=== PATIENT | female | born 1950 | race African-American/Black ===

== ENCOUNTER 2017-12-12 09:11 | Day surgery (SDC) | payer MEDICARE, OTHER ==
[~2017-12-12 09:11] MED LIST: EPINEPHRINE INJ 1 MG/10 ML DISP.SYRIN ONE; FLUMAZENIL INJ 0.5 MG/5 ML VIAL ONE; GLUCAGON,HUMAN RECOMB 1 MG INJ ONE; GLYCOPYRROLATE INJ 0.4 MG/2 ML VIAL ONE; NALOXONE HCL INJ/PF 0.4 MG/1 ML SDV ONE; ONDANSETRON HCL INJ/PF 4 MG/2 ML SDV ONE
[2017-12-12] MEDS: MIDAZOLAM 2 MG/2 ML INJ ONE ×4 (10:58→11:08)
[2017-12-12] MEDS: FENTANYL CITRATE INJ/PF 100 MCG/2 ML AMPUL ONE ×3 (11:00→11:20)
--- NOTE | 2017-12-12 11:52 | PDOC DISCHARGE SUMMARY ---
Discharge Summary (SDC) - Discharge Final Diagnosis: Polyps Date of Surgery: 12/12/17 Discharge Date: 12/12/17 Condition: Good Treatment or Instructions: [facility] [place] [id number] POST ENDOSCOPY DISCHARGE INSTRUCTIONS 1. Diet: Start clear liquids that a regular diet as tolerated. 2. Resume all preoperative medications. All oral anticoagulants and aspirins can be resumed 24 hours after procedure. 3. If a polypectomy was performed some bleeding per rectum may occur. This should stop within 3 days. If not, please contact the office. 4. If you had a colonoscopy you may experience some bloating and delayed return of normal bowel function for several days, your regular bowel movement pattern should resume within a week. 5. Please contact [facility] at to make an appointment with Dr. Benítez for 1 to 3 weeks following procedure. 6. If you have any questions or concerns regarding your care,treatment plan or follow up, please contact our office. 7. Per clinical guidelines we recommend you undergo a repeat colonoscopy in 3 years. Referrals: BENJA SOLOMON MD [Primary Care Provider] - Discharge Diet: As Tolerated Discharge Activity: Activity As Tolerated Home Care Assistance: None Needed Report the Following to Your Physician Immediately: Shortness of Breath, Increase in Pain, Fever over 101 Degrees
[2017-12-12 12:59] VITALS: BP 122/73
--- NOTE | 2017-12-12 13:13 | OPERATIVE REPORT E ---
Operative Report NAME: KOTA HICKS : 1950 AGE: 67Y DATE OF SURGERY: 12/12/2017 ROOM: PREOPERATIVE DIAGNOSIS: Personal history of lipomatous polyp of the transverse colon. POSTOPERATIVE DIAGNOSIS: Personal history of lipomatous polyp of the transverse colon with multiple rectosigmoid colon polyps. OPERATION: 1. Total colonoscopy to cecum. 2. Rectal and sigmoid colon polypectomies x3. SURGEON: KELI LAYTON M.D. ANESTHESIA: Conscious sedation. COMPLICATIONS: None. ESTIMATED BLOOD LOSS: Scant. DRAINS: None. TISSUE REMOVED OR ALTERED: Polyps of the rectosigmoid area. PROCEDURE: The patient was taken to the preoperative holding area to the main endoscopy suite where conscious sedation was induced. The patient was placed in the left lateral decubitus position. Surgical plan and surgical timeout were conducted. A rectal exam was performed. There was no visible or palpable anorectal pathology. A flexible adult colonoscope was advanced through the anorectal canal all the way to the cecum. This was an excellent study on a well-prepped bowel. There was some residual green stool throughout the colon which aspirated reasonably well; some particulate was present. Transillumination of the anterior abdominal wall through the cecum, and visualization of the ileocecal valve confirmed cecal intubation. The scope was withdrawn the length of the colon, checking the mucosa carefully. There was no evidence of tumor, stricture, bleeding, or diverticuloses. In the mid transverse colon was approximately a 1.5 cm pedunculated polyp resembling a lipoma. This was photographed. Of note, this was documented in patient's colonoscopy from 2012. No polypectomy was performed. The scope was withdrawn through the remainder of the colon. No other pathology is seen. In the rectosigmoid region, 3 small polyps were removed using the cold forceps device. Bleeding was minimal. The remainder of the colonoscopy was unremarkable. The scope was brought through the anorectal canal. No other pathology is seen. Patient tolerated the procedure well. Per surveillance guidelines, the patient would be an appropriate candidate for followup colonoscopy in 3 years, or sooner if any problems develop. DICTATING PHYSICIAN: KELI LAYTON M.D. [id number] PHY#: [id number] ID: [id number] JOB#: [id number] ACCT: [id number] cc:KELI LAYTON M.D. >
== END 2017-12-12 12:45 | disposition home or self-care (01) ==
LOC: END 09:11
PROVIDERS: ATTEND Surgery
PROC: 0DBN8ZX Excision of Sigmoid Colon, Via Natural or Artificial Opening Endoscopic, Diagnostic (ICD-10-PCS; principal; 2017-12-12 10:00)
DX: Z12.11 Encounter for screening for malignant neoplasm of colon (principal); K63.5 Polyp of colon; Z86.010 Personal history of colon polyps; E78.00 Pure hypercholesterolemia, unspecified; I10 Essential (primary) hypertension; R73.03 Prediabetes; E03.9 Hypothyroidism, unspecified; G47.30 Sleep apnea, unspecified; Z79.82 Long term (current) use of aspirin; Z79.84 Long term (current) use of oral hypoglycemic drugs; Z79.899 Other long term (current) drug therapy; Z88.0 Allergy status to penicillin; Z88.1 Allergy status to other antibiotic agents
CPT/HCPCS: 45380; 82962; 88305 ×2; J2250; J3010; J0171; J1610; J2310; J2405; J3490

== ENCOUNTER → 2018-02-13 | Outpatient (CLI) | payer MEDICARE ==
--- NOTE | 2018-02-13 10:50 | RADIOLOGY REPORT (SQ) ---
EXAM DESCRIPTION: KNEE BILATERAL 1-2 VIEWS COMPLETED DATE/TIME: 02/13/2018 10:24 am REASON FOR STUDY: PAIN IN UNSPECIFIED KNEE M25.569 PAIN IN UNSPECIFIED KNEE COMPARISON: None. NUMBER OF VIEWS: Two views. TECHNIQUE: AP and lateral standing bilateral knees. LIMITATIONS: None. FINDINGS: MINERALIZATION: Normal. RIGHT KNEE BONES: No acute fracture. No worrisome bone lesions. MEDIAL COMPARTMENT: No significant osteophytes. No joint space narrowing. No chondrocalcinosis. LATERAL COMPARTMENT: No significant osteophytes. No joint space narrowing. No chondrocalcinosis. PATELLOFEMORAL COMPARTMENT: There are small posterior patellar and trochlear osteophytes with narrow ing of the joint space. There is no effusion. LEFT KNEE BONES: No acute fracture. No worrisome bone lesions. MEDIAL COMPARTMENT: No significant osteophytes. No joint space narrowing. No chondrocalcinosis. LATERAL COMPARTMENT: No significant osteophytes. No joint space narrowing. No chondrocalcinosis. PATELLOFEMORAL COMPARTMENT: Posterior patellar and trochlear osteophytes are present. There is no j oint effusion. OTHER: There may be some small loose bodies in the midportion of the joint. IMPRESSION: 1. Bilateral patellofemoral degenerative joint changes. 2. There appear to be a couple small loose bodies in the joint on the left. TECHNICAL DOCUMENTATION: JOB ID: [id number] [employer]- All Rights Reserved Reading location - IP/workstation name: [email or web address]
== END ==
LOC: OD 09:56
PROVIDERS: ATTEND Internal Medicine
DX: M25.562 Pain in left knee (principal); M25.561 Pain in right knee; M17.0 Bilateral primary osteoarthritis of knee

== ENCOUNTER → 2019-09-09 | Outpatient (CLI) | payer MEDICARE | LOC: WI 09:00 | PROVIDERS: ATTEND Internal Medicine | DX: Z12.31 Encounter for screening mammogram for malignant neoplasm of breast (principal) | CPT/HCPCS: 77063; 77067 ==

== ENCOUNTER → 2019-10-02 | Outpatient (CLI) | payer MEDICARE ==
--- NOTE | 2019-10-05 11:13 | WOMENS IMAGING REPORT ---
EXAM DESCRIPTION: LEFT DIAGNOSTIC MAMMO W/CAD COMPLETED DATE/TIME: 10/02/2019 10:42 am REASON FOR STUDY: R92.0 MAMMOGRAPHIC MICROCALCIFICATION FOUND ON DIAGNOSTIC IMAGING OF BREAST R92.0 MAMMOGRAPHIC MICROCALCIFICATION FOUND ON DX IMAGING OF COMPARISON: Screening study 09/09/2019 and 09/08/2018 EXAM PARAMETERS: Additional true lateral view. Magnification imaging in orthogonal planes. LIMITATIONS: None. FINDINGS: BREAST LATERALITY: left MASSES: No suspicious masses. CALCIFICATIONS: Increasing pleomorphic calcifications upper outer quadrant 10 cm from the nipple. Th is is in the area of prior biopsy. ARCHITECTURAL DISTORTION: None. ASYMMETRY: None noted. OTHER: No other significant findings. IMPRESSION: Increasing pleomorphic calcifications BREAST DENSITY: b. There are scattered areas of fibroglandular density. BIRAD: ASSESSMENT: 4A-Suspicious abnormality: Needing intervention but with a low suspicion for mal ignancy. Biopsy should be performed in the absence of clinical contra-indication. RECOMMENDATION: RECOMMENDED FOLLOW UP: Birads 4: Biopsy should be performed in the absence of clinic al contraindication. SPECIFIC INTERVENTION/IMAGING/CONSULTATION RECOMMENDED:The suspicious finding(s) amenable to stereo-t actic-guided vacuum assisted core biopsy. COMMUNICATION:The imaging findings were not discussed with the patient. Her referring provider has be en notified of the findings. COMMENT: The patient has been notified of the results by letter per SA requirements. Additional no tification policies are in place for contacting patient with suspicious or incomplete findings. Quality ID #225: The [employer] recommends an annual screening mammogram for women aged 40 years or over. This facility utilizes a reminder system to ensure that all patients receive reminder letters, and/or direct phone calls for appointments. This includes reminders for routine scr eening mammograms, diagnostic mammograms, or other Breast Imaging Interventions when appropriate. Th is patient will be placed in the appropriate reminder system. TECHNICAL DOCUMENTATION: FINDING NUMBER: (1) ASSESSMENT: (1) JOB ID: [id number] [email or web address]- All Rights Reserved Reading location - IP/workstation name: [email or web address]
== END ==
LOC: WI 10:45
PROVIDERS: ATTEND Internal Medicine
DX: R92.0 Mammographic microcalcification found on diagnostic imaging of breast (principal)
CPT/HCPCS: 77065

== ENCOUNTER → 2019-10-22 | Day surgery (SDC) | payer MEDICARE ==
[~2019-10-22] MED LIST changes: -EPINEPHRINE INJ 1 MG/10 ML DISP.SYRIN ONE; -FLUMAZENIL INJ 0.5 MG/5 ML VIAL ONE; -GLUCAGON,HUMAN RECOMB 1 MG INJ ONE; -GLYCOPYRROLATE INJ 0.4 MG/2 ML VIAL ONE; +LIDOCAINE 1%/EPINEPHRINE INJ 20 ML VIAL ONE; -NALOXONE HCL INJ/PF 0.4 MG/1 ML SDV ONE; -ONDANSETRON HCL INJ/PF 4 MG/2 ML SDV ONE
--- NOTE | 2019-10-22 11:13 | Discharge Summary ---
Discharge Summary (SDC) - Discharge Final Diagnosis: Abnormal microcalcifications upper outer quadrant left breast Date of Surgery: 10/22/19 Discharge Date: 10/22/19 Condition: Good Treatment or Instructions: Wear supportive bra; may take Tylenol or Motrin PRN pain; follow-up with [facility] in 1 1 to 2 weeks; office will call patient with results of path report. Referrals: BENJA SOLOMON MD [Primary Care Provider] - Discharge Diet: As Tolerated Discharge Activity: Activity As Tolerated Home Care Assistance: None Needed Report the Following to Your Physician Immediately: Shortness of Breath, Increase in Pain, Fever over 101 Degrees
--- NOTE | 2019-10-22 11:18 | Operative Report ---
Operative Report DATE OF SURGERY: 10/22/19 PREOPERATIVE DIAGNOSIS: 1. Abnormal region of microcalcifications upper outer quadrant left breast. 2. History of previous stereotactic breast biopsy left breast POSTOPERATIVE DIAGNOSIS: Same OPERATION: 1. Stereotactically directed incision mammotomy core biopsies x10 left breast upper outer quadrant. 2. Deployment of clip marker upper outer quadrant left breast. 3. Interpretation of multiple intraoperative mammograms. 4. Interpretation of specimen radiograph SURGEON: KELI LAYTON ANESTHESIA: Local TISSUE REMOVED OR ALTERED: Multiple cores of right upper quadrant left breast COMPLICATIONS: None ESTIMATED BLOOD LOSS: Scant INTRAOPERATIVE FINDINGS: See below PROCEDURE: The patient was taken from the ambulatory area to the radiology suite, in the room with the stereotactic biopsy machine. The patient was placed in prone position, left breast tucked into hole. The left breast was placed into compression, and the region of microcalcifications in the upper outer quadrant of the left breast was localized. Of note the patient had previous upper outer quadrant core biopsy performed over 20 years ago with clip marker placement. Surgical timeout was conducted. The surface of the left breast was prepped. Of note the mammotome was approached from the caudal cranial direction. The skin was anesthetized 1% plain lidocaine. A dmitriy was made the skin with 11 blade, opened with a hemostat clamp, and the mammotome advanced to the appropriate depth. Pre-and post fire films showed good alignment between the 10 and the microcalcifications. We now completed core biopsy of the target tissue in a circumferential fashion. Patient tolerated procedure well. Approximately 10 to 11 cores were obtained. Cores were placed in a Emile dish and imaged with the specimen radiograph machine. This revealed retention of multiple m icrocalcifications. We felt the target tissue had been sufficiently sampled. A clip marker was now deployed, the post deployment mammogram showed retention of the clip in the patient's left breast. The introducer sheath was removed and the patient left breast, and compression applied. Patient tolerated procedure well. Discharge instructions provided. Patient will take Motrin and Tylenol as needed pain. We will call her with results with path report. She will follow-up with [facility] in 2 weeks.
== END ==
LOC: RAD 09:39
PROVIDERS: ATTEND Surgery
DX: N60.22 Fibroadenosis of left breast (principal); D24.2 Benign neoplasm of left breast; N60.12 Diffuse cystic mastopathy of left breast; R92.0 Mammographic microcalcification found on diagnostic imaging of breast; E03.9 Hypothyroidism, unspecified; E78.00 Pure hypercholesterolemia, unspecified; G47.30 Sleep apnea, unspecified; E78.5 Hyperlipidemia, unspecified; I10 Essential (primary) hypertension; Z88.0 Allergy status to penicillin; Z79.84 Long term (current) use of oral hypoglycemic drugs; Z79.899 Other long term (current) drug therapy
CPT/HCPCS: 88305 ×2; 88342; 19081; J3490

== ENCOUNTER → 2020-04-11 | Outpatient (CLI) | payer MEDICARE ==
--- NOTE | 2020-04-11 11:49 | WOMENS IMAGING REPORT ---
EXAM DESCRIPTION: 3D DX MAMMO LEFT UNILAT IMAGES COMPLETED DATE/TIME: 04/11/2020 10:28 am REASON FOR STUDY: R92.0 MAMMOGRAPHIC MICROCALCIFICATION FOUND ON DIAGNOSTIC IMAGING OF BREAST R92.0 MAMMOGRAPHIC MICROCALCIFICATION FOUND ON DX IMAGING OF . Biopsy in October 2019 demonstrated sclerosing adenosis, intraductal papilloma, fibrocystic campbell es, negative for atypia or malignancy. COMPARISON: Stereotactic biopsy and post biopsy mammogram, 10/22/2019. Left breast diagnostic mammogr am 10/02/2019. Screening mammogram 09/09/2019. EXAM PARAMETERS: Standard craniocaudal and mediolateral oblique images of the breast recorded using digital acquisition and breast tomosynthesis. Read with the assistance of CAD. .PENDING SALE TO [facility] - [employer] Special[employer] Version 9.2 LIMITATIONS: None. FINDINGS: BREAST LATERALITY: left MASSES: No suspicious masses. CALCIFICATIONS: No new or suspicious calcifications. Microcalcifications have similar distribution t o previous. ARCHITECTURAL DISTORTION: No architectural distortion. Decreased post procedural hematoma since prio r. ASYMMETRY: None noted. OTHER: No other significant findings. IMPRESSION: Stable calcifications in the left breast. Recommend annual routine screening mammograph y for which the patient will be due in August 2020. BREAST DENSITY: b. There are scattered areas of fibroglandular density. BIRAD: ASSESSMENT: 2 Benign findings. RECOMMENDATION: RECOMMENDED FOLLOW UP: Birads 1 or 2: The patient should resume routine screening . SPECIFIC INTERVENTION/IMAGING/CONSULTATION RECOMMENDED:No additional intervention/ imaging/consultati on needed at this time. COMMUNICATION:The negative/benign results were communicated to the patient. COMMENT: The patient has been notified of the results by letter per MQSA requirements. Additional no tification policies are in place for contacting patient with suspicious or incomplete findings. Quality ID #225: The [employer] recommends an annual screening mammogram for women aged 40 years or over. This facility utilizes a reminder system to ensure that all patients receive reminder letters, and/or direct phone calls for appointments. This includes reminders for routine scr eening mammograms, diagnostic mammograms, or other Breast Imaging Interventions when appropriate. Th is patient will be placed in the appropriate reminder system. TECHNICAL DOCUMENTATION: FINDING NUMBER: (1) ASSESSMENT: (1) JOB ID: [id number] 2010 [email or web address]- All Rights Reserved Reading location - IP/workstation name: [email or web address]
== END ==
LOC: WI 11:00
PROVIDERS: ATTEND Surgery
DX: R92.0 Mammographic microcalcification found on diagnostic imaging of breast (principal)
CPT/HCPCS: 77065; G0279

== ENCOUNTER → 2020-10-19 | Outpatient (CLI) | payer MEDICARE ==
--- NOTE | 2020-10-19 14:37 | WOMENS IMAGING REPORT ---
EXAM DESCRIPTION: 3D SCREENING MAMMO BILAT IMAGES COMPLETED DATE/TIME: 10/19/2020 1:52 pm REASON FOR STUDY: Z12.31 ENCOUNTER FOR SCREENING MAMMOGRAM FOR MALIGNANT NEOPLASM OF BREAST Z12.31 ENCNTR SCREEN MAMMOGRAM FOR MALIGNANT NEOPLASM OF MAINOR COMPARISON: 2019 EXAM PARAMETERS: Views: Standard craniocaudal and mediolateral oblique views of each breast recorded using digital acquisition and breast tomosynthesis. Read with the assistance of CAD. .[facility] - [employer] Attendant Version 9.2 LIMITATIONS: None. FINDINGS: No suspicious masses, suspicious calcifications or architectural distortion. No areas of c oncern. IMPRESSION: NEGATIVE MAMMOGRAM. BIRADS 1. BREAST DENSITY: b. There are scattered areas of fibroglandular density. BIRAD: ASSESSMENT: 1 NEGATIVE RECOMMENDATION: ROUTINE SCREENING COMMENT: The patient has been notified of the results by letter per MQSA requirements. Additional no tification policies are in place for contacting patient with suspicious or incomplete findings. Quality ID #225: The [employer] recommends an annual screening mammogram for women aged 40 years or over. This facility utilizes a reminder system to ensure that all patients receive reminder letters, and/or direct phone calls for appointments. This includes reminders for routine scr eening mammograms, diagnostic mammograms, or other Breast Imaging Interventions when appropriate. Th is patient will be placed in the appropriate reminder system. TECHNICAL DOCUMENTATION: FINDING NUMBER: (1) ASSESSMENT: (1) JOB ID: [id number] 2010 [employer]- All Rights Reserved Reading location - IP/workstation name: [email or web address]
== END ==
LOC: WI 13:36
PROVIDERS: ATTEND Internal Medicine
DX: Z12.31 Encounter for screening mammogram for malignant neoplasm of breast (principal)
CPT/HCPCS: 77063; 77067